=== PATIENT | female | born 1940 | race Caucasian/White ===

== ENCOUNTER 2023-08-14 15:50 | Emergency (ER) | payer MEDICARE, BC, SELFPAY ==
--- NOTE | ~2023-08-14 | CT_ITS ---
EXAMINATION: CT brain wo con DATE: 08/14/2023 16:19 INDICATION: fall/LEFT EYE CONTUSION . TECHNIQUE: Computed tomography (CT) of the head was performed without intravenous contrast. The mA wa s adjusted according to patient size. Iterative reconstruction technique was employed. The dose-lengt h product was 681.00 mGy-cm. COMPARISON: None. FINDINGS: No acute intracranial hemorrhage or extra-axial fluid collection. No hydrocephalus, mass, or herniation. No acute ischemic infarct. Unremarkable dural venous sinus attenuation. No acute osseous abnormality. Left orbital soft tissue swelling. Air-fluid level and aerated secretions in the left maxillary sinus aerated spaces are clear. Mild atrophy and chronic white matter change. Atherosclerotic intracranial calcification. Bilateral l ens replacements. IMPRESSION: No acute intracranial process. Acute left maxillary sinusitis versus mucosal hemorrhage. Reviewed, dictated and finalized at location K. NG MACHINE OPERATOR
--- NOTE | ~2023-08-14 | CT_ITS ---
EXAMINATION: CT facial & cervical spine wo DATE: 08/14/2023 16:20 INDICATION: fall/LEFT EYE CONTUSION/LIP LAC/NO NECK COMPLAINTS TECHNIQUE: Computed tomography (CT) of the maxillofacial region and cervical spine was performed with out intravenous contrast. Automated exposure control and iterative reconstruction technique were empl oyed. The dose-length product was 153.77 mGy-cm. COMPARISON: CT brain, same date FINDINGS: CERVICAL: Vertebral Body Alignment: Intact. Reversed lordosis centered at C5. Mild anterolisthesis at C4-5. Craniocervical and atlantoaxial alignment: Moderate degenerative change. Alignment intact. Osseous structures/fracture: No evidence of a lytic or blastic process in the visualized spine. No e vidence of acute fracture. Right C4-5 facet fusion. Cervical soft tissues: The paraspinal soft tissues planes are maintained. Multinodular goiter. Anteri or cervical chain lymphadenopathy. Biapical pleural scarring. Degenerative changes: Degenerative changes, without severe neural foraminal or central canal narrowin g. FACE: Soft Tissues: Left frontal, orbital, and cheek soft tissue swelling. Facial bones: No acute fracture. No lytic or blastic process. Eyes: The globes are intact. Bilateral lens replacements. The soft tissue planes of the orbits are m aintained. Paranasal Sinuses: Air-fluid level, inferior mucosal thickening, and aerated secretions in the left maxillary sinus. Foreign Bodies: No radiopaque foreign bodies. Other Findings: Multiple periapical lucencies. IMPRESSION: No acute fracture or traumatic malalignment in the cervical spine. Grade 1 anterolisthesis at C4-5, p resumably on a degenerative basis. No acute facial bone fracture. Acute left maxillary sinusitis versus mucosal hemorrhage. Periodontal disease. Anterior cervical chain lymphadenopathy. Reviewed, dictated and finalized at location K. ED MILK SUPERVISOR IMPRESSION: No acute fracture or traumatic malalignment in the cervical spine. Grade 1 ante rolisthesis at C4-5, presumably on a degenerative basis. No acute facial bone fracture. Acute left maxillary sinusitis versus mucosal hemorrhage. Periodontal disease. Anterior cervical chain lymphadenopathy.
[2023-08-14 15:50] VITALS: BP 168/86; PULSE 88; RESP 16; TEMP 36.5; O2SAT 97
--- NOTE | 2023-08-14 15:56 | ED.FALL ---
HPI - Fall General Chief Complaint: Fall Stated Complaint: facial laceration Time Seen by Provider: 08/14/23 15:55 Source: patient Mode of arrival: ambulatory Limitations: no limitations History of Present Illness HPI Narrative: patient is an 83-year-old female with the accidental fall tripping over a parking spot. She fell onto her face and sustained small facial lacerations. She has some facial pain and teeth pain. No prodrome. No loss of consciousness. Tetanus shot up-to-date in the past 10 years. complaint: fall Onset (ago): minute(s) ( Prior to arrival) Fall from: standing Fall witnessed: yes, by family Place fall occurred: street Loss of consciousness: none Prolonged down time: no Symptoms prior to fall: none Context: tripped/slipped Location of injury: head and face Severity: mild Severity scale (1-10): 3 Quality: sharp Associated symptoms (after fall): denies Related Data Home Medications Medication Instructions Recorded Confirmed lisinopril 10 mg tablet 10 mg PO DAILY 08/14/23 08/14/23 Allergies Allergy/AdvReac Type Severity Reaction Status Date / Time No Known Allergies Allergy Verified 08/14/23 15:58 Review of Systems Review of Systems: All systems reviewed & are unremarkable except as noted in HPI and below Constitutional: Constitutional: Reports no additional constitutional complaints Eyes: Eyes: Reports no additional eye complaints ENT: Reports system reviewed and no additional complaints, except as documented Cardiovascular: Cardiovascular: Reports no additional cardiovascular complaints Respiratory: Respiratory: Reports no additional respiratory complaints Gastrointestinal: Gastrointestinal: Reports no additional gastrointestinal complaints Genitourinary: Genitourinary: Reports no additional female genitourinary complaints Musculoskeletal: Musculoskeletal: Reports no additional musculoskeletal complaints Integumentary/Breasts: Skin/Breast: Reports system reviewed and no additional complaints, except as docu Neurologic: Reports system reviewed and no additional complaints, except as documented Psychiatric: Psychiatric: Reports no additional psychiatric complaints Endocrine: Endocrine: Reports no additional endocrine complaints Hematologic/Lymphatic: Hematologic/Lymphatic: Reports no additional hematologic/lymphatic complaints Allergic/Immunologic: Allergic/Immunologic: Reports no additional allergic/immunologic complaints Exam Const: General: healthy appearing Nutritional Appearance: well nourished Orientation/consciousness: patient oriented x3 HENMT: Head: normal to inspection Ears: external ears normal Face/Nose/Sinus: Normal external nose present Face and sinus: normal facial exam Mouth: Yes Normal oral and palatal mucosa present Teeth and gingiva: dentition normal Eyes: Conjunctivae: conjunctivae normal Pupils: Equal, round and reactive pupils present EOM: EOMs intact bilaterally Neck: Neck: normal visual inspection Chest: Chest palpation & inspection: normal inspection of the chest Resp: Effort & Inspection: normal respiratory effort and not labored Auscultation: clear to auscultation bilaterally and no crackles Cardio: Rate: regular rate Rhythm: regular rhythm Heart sounds: no murmurs GI: Inspection: non-distended GI Palp: Yes Soft to palpation, No Tenderness to palpation present (GI) and No Guarding due to palpation present (GI) Auscultation: normal bowel sounds : General: Yes bladder normal to palpation Back/Spine/Pelvis: Back: no CVA tenderness Skin: General skin exam: normal color Rashes: no rashes Wounds: wound noted and wounds noted Other: Left upper eyebrow region has a 4 cm linear laceration without bleeding and upper lip midline has a small 0.2 cm laceration without bleeding; ecchymosis around the left eyelid region Neuro: General: patient oriented x3 Cranial nerves: Yes Nystagmus not present Speech: normal speech Gai
[2023-08-14 17:05] VITALS: BP 148/88; PULSE 78; RESP 18; O2SAT 98
== END 2023-08-14 17:05 | disposition home or self-care (01) ==
PROVIDERS: Emergency Provider Emergency Medicine; PCP Physician Assistant
DX: S01.112A Laceration without foreign body of left eyelid and periocular area, initial encounter (principal); W18.09XA Striking against other object with subsequent fall, initial encounter; Y92.410 Unspecified street and highway as the place of occurrence of the external cause
CPT/HCPCS: 12011; 70450; 70486; 72125; 99284